=== PATIENT | female | born 1955 | race Caucasian/White ===

== ENCOUNTER → 2024-05-17 | Outpatient (CLI) | payer OTHER ==
[2024-05-17 13:50] LABS: Basophils # (auto) 0.1 10 ^3/uL (0-0.2); Basophils % (auto) 0.7 % (0.0-2.0); Eosinophils # (auto) 0.1 10 ^3/uL (0-0.8); Eosinophils % (auto) 1.1 % (0.0-7.0); Hematocrit 42.4 % (36.0-46.0); Hemoglobin 14.6 g/dL (12.2-16.2); Lymphocytes # (auto) 1.8 10 ^3/uL (0.4-5.4); Lymphocytes % (auto) 21.9 % (10.0-50.0); Mean Corpuscular Hgb Conc. 34.5 g/dL (32.0-36.0); Monocytes # (auto) 0.6 10 ^3/uL (0-1.3); Monocytes % (auto) 7.6 % (0.0-12.0); Neutrophils # (auto) 5.7 10 ^3/uL (1.6-8.6); Neutrophils % (auto) 68.7 % (37.0-80.0); Nucleated Red Blood Cells % 0.8 %; Red Blood Cells 4.88 10^6/uL (4.0-5.20); Red Cell Distribution Width 13.5 % (11.8-14.3); White Blood Cell 8.2 10^3/uL (4.4-10.8)
[2024-05-17 14:20] LABS: Alanine Aminotransferase 20 U/L (7-40); Albumin 5.1 g/dL (3.2-4.8); Alkaline Phosphatase 82 U/L (46-116); Anion Gap 8 (5-15); Aspartate Aminotransferase 17 U/L (13-40); Bilirubin, Total 0.9 mg/dL (0.2-1.0); Blood Urea Nitrogen 12 mg/dL (9-23); Calcium 10.6 mg/dL (8.7-10.4); Carbon Dioxide 26 mmol/L (20-30); Chloride 106 mmol/L (98-107); Cholesterol 209 mg/dL (< 200); Glucose 105 mg/dL (74-106); HDL Cholesterol 40 mg/dL (40-59); LDL Cholesterol 147 mg/dL (< 100); Potassium 4.4 mmol/L (3.5-5.1); Sodium 140 mmol/L (136-145); Triglycerides 196 mg/dL (< 150)
== END | disposition home or self-care (01) ==
LOC: LAB 13:35
PROVIDERS: ATTEND Specialist
DX: I12.9 Hypertensive chronic kidney disease with stage 1 through stage 4 chronic kidney disease, or unspecified chronic kidney disease (principal); N18.2 Chronic kidney disease, stage 2 (mild); M16.4 Bilateral post-traumatic osteoarthritis of hip
CPT/HCPCS: 36415; 80053; 80061; 85025

== ENCOUNTER → 2024-11-08 | Outpatient (CLI) | payer OTHER ==
[~2024-11-08] VITALS: Ht 162.6 cm; Wt 88.0 kg
[2024-11-08] MEDS: ADENOSINE 74 MG in GIVE UN-DILUTED 0 ML IV ONE (11:33)
--- NOTE | 2024-11-08 13:26 | DVHSR ---
APPROVED REPORT Exam: Nuclear Stress Test BMI: 0 Stress Test Details HR Max Heart Rate (APMHR): 150.318905 bpm Target HR (85% APMHR): 127.191972 bpm BP ECG Stress ECG Conclusion Review of the myocardial perfusion images during stress demonstrated homogeneous radiotracer uptake t hroughout the left ventricular myocardium. Left ventricular volumes are normal. Ejection fraction i s normal and is estimated at 63%. There is no significant transient ischemic dilatation. No gated i mages are available to assess for wall motion. Impressions: 1. Low risk myocardial perfusion scan with no evidence of ischemia or prior infarction. 2. Normal left ventricular systolic function. NM EXAM: Myocardial Perfusion REST/STRESS Imaging Protocol: Rest Tc-99m/Stress Tc-99m 1 day Resting Data Rest SPECT myocardial perfusion imaging was performed in supine position 60 minutes following the int ravenous injection of 11.4 mCi of Tc-99m Sestamibi. Time of rest injection: 1000 Date: 11/08/2024 Time of rest imagin Date: 11/08/2024 Administration Route: IV Administration Site: Right AC Pharmacologic Stress Pharmacologic stress test was performed by injecting Regadenoson 0.4 mg IV push followed by the intra venous injection of 31.1 mCi of Tc-99m Sestamibi. Time of stress injection: 1135 Date: 11/08/2024 Time of stress imagin Date: 11/08/2024 Administration Route: IV Administration Site: Right AC Gated Stress SPECT was performed 60 minutes after stress injection. The images were gated to evaluate regional wall motion and calculate left ventricular ejection fracti on. Stress only was performed in the Supine position. Nuclear Conclusion ECG Findings: negative for ischemia Clinical Findings: negative for ischemia Nuclear Findings: negative for ischemia Exercise Capacity: not assessed Left Ventricular Function: normal Risk Study: moderate Review of the myocardial perfusion images during stress demonstrated homogeneous radiotracer uptake t hroughout the left ventricular myocardium. Left ventricular volumes are normal. Ejection fraction i s normal and is estimated at 63%. There is no significant transient ischemic dilatation. No gated i mages are available to assess for wall motion. Impressions: 1. Low risk myocardial perfusion scan with no evidence of ischemia or prior infarction. 2. Normal left ventricular systolic function.
== END | disposition home or self-care (01) ==
LOC: XYW 09:57
PROVIDERS: ATTEND Internal Medicine
DX: Z01.810 Encounter for preprocedural cardiovascular examination (principal); M16.0 Bilateral primary osteoarthritis of hip
CPT/HCPCS: 78452; 93017; A9500; J0153

== ENCOUNTER 2024-12-27 06:00 | Inpatient (IN) | payer OTHER ==
[2024-12-23 15:31] LABS: Basophils # (auto) 0.1 10 ^3/uL (0-0.2); Basophils % (auto) 0.7 % (0.0-2.0); Eosinophils # (auto) 0.1 10 ^3/uL (0-0.8); Eosinophils % (auto) 1.2 % (0.0-7.0); Hematocrit 43.6 % (36.0-46.0); Hemoglobin 14.6 g/dL (12.2-16.2); Lymphocytes # (auto) 2.2 10 ^3/uL (0.4-5.4); Lymphocytes % (auto) 27.4 % (10.0-50.0); Mean Corpuscular Hemoglobin 29.2 pg (28.0-32.0); Mean Corpuscular Hgb Conc. 33.5 g/dL (32.0-36.0); Mean Corpuscular Volume 87.4 fL (80.0-100.0); Monocytes # (auto) 0.6 10 ^3/uL (0-1.3); Monocytes % (auto) 7.1 % (0.0-12.0); Neutrophils # (auto) 5.2 10 ^3/uL (1.6-8.6); Neutrophils % (auto) 63.6 % (37.0-80.0); Platelet Count (auto) 239 10^3/uL (140-450); Red Blood Cells 4.99 10^6/uL (4.0-5.20); Red Cell Distribution Width 13.4 % (11.8-14.3); White Blood Cell 8.2 10^3/uL (4.4-10.8)
[2024-12-23 15:48] LABS: INR 0.98 (0.9-1.15); Partial Thromboplastin Time 26.3 SEC (24.5-34.5); Prothrombin Time 10.4 sec (9.3-11.8)
[2024-12-23 16:05] LABS: Urine Bacteria FEW /hpf (None Seen); Urine Blood Negative /uL (Negative); Urine Clarity Clear (Clear); Urine Color Yellow (Yellow); Urine Protein, UAD Negative (Negative); Urine Specific Gravity 1.025 (1.001-1.035); Urine Squamous Epithelial Cell FEW /hpf (<5); Urine Urobilinogen 4 mg/dL (Negative); Urine WBC 17 /HPF (0-5)
[2024-12-23 16:28] LABS: Alanine Aminotransferase 26 U/L (7-40); Alkaline Phosphatase 102 U/L (46-116); Anion Gap 8 (5-15); Aspartate Aminotransferase 19 U/L (13-40); BUN/Creatinine Ratio 15.7 (10.0-20.0); Bilirubin, Total 0.7 mg/dL (0.2-1.0); Blood Urea Nitrogen 14 mg/dL (9-23); Carbon Dioxide 30 mmol/L (20-31); Chloride 104 mmol/L (98-107); Glucose 94 mg/dL (74-106); Potassium 4.1 mmol/L (3.5-5.1); Sodium 142 mmol/L (136-145)
[2024-12-23 16:29] LABS: Albumin 5.3 g/dL (3.2-4.8); Calcium 10.8 mg/dL (8.7-10.4)
[~2024-12-27] VITALS: Ht 162.6 cm; Wt 93.7 kg
[2024-12-27] VITALS (16 sets, daily range): BP systolic 94–120; BP diastolic 49–80; PULSE 47–66; RESP 11–17; TEMP 97.8–98.4; O2SAT 93–100
[~2024-12-27 06:00] MED LIST: ATOR10TA52 PO; METO25TA93 PO
[2024-12-27] MEDS: PREGABALIN CAPSULE 75 MG CAP PO ONE (06:45)
[2024-12-27] MEDS: ACETAMINOPHEN IV 1000 MG/100ML (10MG/ML) IV ONE (06:45)
[2024-12-27] MEDS: CELECOXIB 100 MG CAP PO ONE (06:45)
[2024-12-27] MEDS ORDERED: KETAMINE 50mg/ML 1ml syringe ONE (06:46)
[2024-12-27] MEDS ORDERED: PROPOFOL 10 MG/ML 20 ML IV ONE (06:46)
[2024-12-27] MEDS ORDERED: MIDAZOLAM HCL 2MG/2ML 2ml VIAL (1mg/ml) ONE ×2 (06:46→07:43)
[2024-12-27] MEDS ORDERED: MORPHINE SULF PF 5 MG/10 ML VIAL ONE ×2 (06:46→07:05)
[2024-12-27] MEDS ORDERED: fentaNYL CITRATE 100 MCG/2 ML VL ONE (06:46)
[2024-12-27] MEDS ORDERED: LIDOCAINE 1% INJ PF 5ML AMP ONE (06:46)
[2024-12-27] MEDS ORDERED: SODIUM CHLORIDE LOCK 10 ML ONE (06:46)
[2024-12-27] MEDS ORDERED: MORPHINE SULFATE INJ 2 MG/ml SYRG IV PRN ×2 (07:15→10:00)
[2024-12-27] MEDS ORDERED: KETOROLAC TROMETH 30 MG/ML 1ML VIAL IV PRN (07:15)
[2024-12-27] MEDS ORDERED: HYDROmorphone HCL 2 MG/ML VL/or syr IV PRN ×3 (07:15→10:00)
[2024-12-27] MEDS ORDERED: NITROGLYCERIN 0.4 MG SL TAB SL PRN (07:15)
[2024-12-27] MEDS ORDERED: ceFAZolin 1GM/50ML 50 ML IV SCH (07:15)
[2024-12-27] MEDS: ceFAZolin 2 GM/D5W100ml 100 ML IV ONE (07:21)
[2024-12-27] MEDS: CEFEPIME 1GM/ 50ML 50 ML IV ONE (07:28)
[2024-12-27] MEDS: TRANEXAMIC ACID 20 ML ONE (07:53)
[2024-12-27] MEDS: MORPHINE SULF PF 5 MG/10 ML VIAL ONE (09:00)
[2024-12-27] MEDS: BUPIVACAINE 0.25% INJ 50ML VIAL ONE (09:00)
[2024-12-27] MEDS: KETOROLAC TROMETH 30 MG/ML 1ML VIAL ONE (09:00)
[2024-12-27] MEDS: VANCOMYCIN HCL 1000 MG VL ONE (09:00)
[2024-12-27] MEDS ORDERED: METO-289 PO (09:45)
[2024-12-27] MEDS ORDERED: ATOR40TA52 PO (09:45)
[2024-12-27] MEDS ORDERED: MORPHINE SULFATE 4 MG/ML SYR/VIAL IV PRN (10:00)
[2024-12-27] MEDS: METOPROLOL SUCCINATE XL 50 MG TAB PO SCH (10:00)
[2024-12-27] MEDS ORDERED: diphenhdrAMINE HCL 50 MG/1 ML VL IV PRN (10:00)
[2024-12-27] MEDS ORDERED: NALOXONE HCL 0.4 MG/ML VIAL IV PRN (10:00)
[2024-12-27] MEDS: ACETAMINOPHEN IV 100 ML IV ONE (10:09)
[2024-12-27] MEDS: SUCCINYLCHOLINE CHLORIDE 20 MG/ML 10ML VIAL IV ONE (10:10)
[2024-12-27] MEDS: TETRACAINE 1% INJ 2 ML VIAL IJ ONE (10:10)
[2024-12-27] MEDS: ceFAZolin 1GM VL ONE (10:11)
[2024-12-27] MEDS: LACTATED RINGER'S 1,000 ML IV SCH (10:20)
--- NOTE | 2024-12-27 11:23 | DVH ---
EXAM: XY PELVIS AP CLINICAL INDICATION: sp Left COLEMAN TECHNIQUE: XY PELVIS AP Comparison: None FINDINGS/IMPRESSION: There is no evidence of acute fracture or dislocation. Left hip arthroplasty. Advanced right hip osteoarthritis. The alignment is anatomical. There is no radiopaque foreign body.
[2024-12-27] MEDS: METOCLOPRAMIDE HCL 5MG/ml INJ 2ml VIAL IV ONE (11:34)
[2024-12-27] MEDS: DOCUSATE SOD 100 MG CAP PO SCH (12:04)
[2024-12-27] MEDS: SODIUM CHLOR 0.9% PF (SALINE LOCK) 10ML VIAL/SYR IV SCH (14:06)
[2024-12-27] MEDS: ceFAZolin 1GM/50ML 50 ML IV SCH (14:11)
--- NOTE | 2024-12-27 14:18 | DVHHP2 ---
Review of Systems Allergies: Coded Allergies: Propoxyphene (Verified Adverse Reaction, Unknown, LIGHTHEADED AND TEETH CHATTERING PER PATIENT, 12/27/24) DARVOCET Medications Current Medications Medications Dose Ordered Sig/Pardeep Route Start Time Stop Time Status Last Admin Dose Admin Atorvastatin Calcium 10 mg HS PO 12/27/24 22:00 Metoprolol Succinate 25 mg DAILY PO 12/27/24 10:00 Lactated Ringer's 1,000 ml @ 100 mls/hr Q10H IV 12/27/24 07:15 12/27/24 10:20 100 MLS/HR Sodium Chloride 10 ml Q8HR IV 12/27/24 14:00 12/27/24 14:06 10 ML Oxycodone/ Acetaminophen 1 tab Q4HP PRN PO 12/27/24 07:15 Hydromorphone HCl 1 mg Q2HP PRN IV 12/27/24 07:15 Ondansetron HCl 4 mg Q6HP PRN IV 12/27/24 07:15 Docusate Sodium 100 mg Q12HR PO 12/27/24 10:00 12/27/24 12:04 100 MG Enoxaparin Sodium 40 mg DAILY SC 12/28/24 10:00 Nitroglycerin 0.4 mg Q5MINP PRN SL 12/27/24 07:15 Morphine Sulfate 2 mg Q30M PRN IV 12/27/24 07:15 Pantoprazole Sodium 40 mg BID@0600,1700 PO 12/27/24 17:00 Ketorolac Tromethamine 15 mg Q6HPRN PRN IV 12/27/24 07:15 01/01/25 07:14 Diphenhydramine HCl 25 mg Q4HP PRN IV 12/27/24 10:00 Cefazolin Sodium 50 ml @ 50 mls/hr Q6H IV 12/27/24 13:00 12/28/24 01:59 12/27/24 14:11 50 MLS/HR Cefepime HCl 50 ml @ 12.5 mls/hr DAILY IV 12/28/24 10:00 Exam Vital Signs Vital Signs Date Time Temp Pulse Resp B/P (MAP) Pulse Ox O2 Delivery O2 Flow Rate FiO2 12/27/24 11:53 40 12 109/49 (69) 100 12/27/24 09:38 Room Air 0 93 12/27/24 09:38 97.7 97.7 Labs/Xrays Labs Test 12/23/24 15:23 Range/Units White Blood Count 8.2 4.4-10.8 10^3/uL Red Blood Count 4.99 4.0-5.20 10^6/uL Hemoglobin 14.6 12.2-16.2 g/dL Hematocrit 43.6 36.0-46.0 % Mean Corpuscular Volume 87.4 80.0-100.0 fL Mean Corpuscular Hemoglobin 29.2 28.0-32.0 pg Mean Corpuscular Hemoglobin Concent 33.5 32.0-36.0 g/dL Red Cell Distribution Width 13.4 11.8-14.3 % Platelet Count 239 140-450 10^3/uL Mean Platelet Volume 7.2 6.9-10.8 fL Neutrophils (%) (Auto) 63.6 37.0-80.0 % Lymphocytes (%) (Auto) 27.4 10.0-50.0 % Monocytes (%) (Auto) 7.1 0.0-12.0 % Eosinophils (%) (Auto) 1.2 0.0-7.0 % Basophils (%) (Auto) 0.7 0.0-2.0 % Neutrophils # (Auto) 5.2 1.6-8.6 10 ^3/uL Lymphocytes # (Auto) 2.2 0.4-5.4 10 ^3/uL Monocytes # (Auto) 0.6 0-1.3 10 ^3/uL Eosinophils # (Auto) 0.1 0-0.8 10 ^3/uL Basophils # (Auto) 0.1 0-0.2 10 ^3/uL Nucleated Red Blood Cells 0.0 % Prothrombin Time 10.4 9.3-11.8 sec Prothrombin Time INR 0.98 0.9-1.15 Activated Partial Thromboplast Time 26.3 24.5-34.5 SEC Urine Color Yellow Yellow Urine Clarity Clear Clear Urine pH 7.0 5.0-9.0 Urine Specific [place] 1.025 1.001-1.035 Urine Protein Negative Negative Urine Ketones Negative Negative Urine Blood Negative Negative /uL Urine Nitrite Negative Negative Urine Bilirubin Negative Negative Urine Urobilinogen 4 H Negative mg/dL Urine Leukocyte Esterase 1+ Negative /uL Urine RBC 3 0 - 4 /hpf Urine Microscopic WBC 17 H 0-5 /HPF Urine Squamous Epithelial Cells Few <5 /hpf Urine Bacteria Few H None Seen /hpf Urine Glucose Normal Normal mg/dL Sodium Level 142 136-145 mmol/L Potassium Level 4.1 3.5-5.1 mmol/L Chloride Level 104 98-107 mmol/L Carbon Dioxide Level 30 20-31 mmol/L Anion Gap 8 5-15 Blood Urea Nitrogen 14 9-23 mg/dL Creatinine 0.89 0.550-1.02 mg/dL Glomerular Filtration Rate Calc 69 >90 mL/min BUN/Creatinine Ratio 15.7 10.0-20.0 Serum Glucose 94 74-106 mg/dL Calcium Level 10.8 H 8.7-10.4 mg/dL Total Bilirubin 0.7 0.2-1.0 mg/dL Aspartate Amino Transferase (AST) 19 13-40 U/L Alanine Aminotransferase (ALT) 26 7-40 U/L Alkaline Phosphatase 102 46-116 U/L Total Protein 8.0 5.7-8.2 g/dL Albumin 5.3 H 3.2-4.8 g/dL Assessment/Plan Assessment/Plan see dictated note Plan discussed with: Patient Date of Service: Dec 27, 2024 Billing Provider: ADAM EISENBERG MD Common Visit Codes: [id number] INP/OBS CARE (HIGH) Secondary Visit Codes: 62154-[id number] CARE PLAN 30 MINUTES ADAM EISENBERG MD Dec 27, 2024 14:18
[2024-12-27] MEDS: ONDANSETRON HCL 4 MG/2 ML VIAL IV PRN (15:40)
--- NOTE | 2024-12-27 15:43 | DVHHP ---
ADMIT DATE: 12/27/2024 HISTORY OF PRESENT ILLNESS: The patient is a 69-year-old lady who was admitted after she underwent surgery on the left hip for DJD of the hip. The patient at this time denies any significant pain. No chest pain or shortness of breath. No nausea or vomiting. REVIEW OF SYSTEMS: Review of rest of systems are otherwise currently negative. PAST MEDICAL HISTORY: Significant for hypertension, hyperlipidemia. MEDICATIONS: She takes Lipitor and metoprolol. ALLERGIES: TO PROPOXYPHENE. SOCIAL HISTORY: Denies smoking or alcohol. Lives at home with family. FAMILY HISTORY: Negative. PHYSICAL EXAMINATION: GENERAL: The patient is awake, alert. VITAL SIGNS: Temperature of 97.6, pulse of 45 per minute, blood pressure 109/49. SHEENT: Unremarkable. NECK: There is no JVD, no pedal edema. LUNGS: Equal bilaterally, no added sounds. CARDIOVASCULAR: S1, S2 is regular. The patient is bradycardic. ABDOMEN: Soft. There is no organomegaly. NEUROLOGIC: Nonfocal. MUSCULOSKELETAL: There is a dressing at the site of the left hip surgery. ASSESSMENT AND PLAN: * Bradycardia. The patient's metoprolol will be held. * Hypertension. * Hyperlipidemia. * Obesity. * Status post left hip surgery for DJD of the hip. The patient will receive physical therapy and be placed on pain medications. * Advance care planning, the patient is a FULL CODE. Time spent was 19 minutes. MD GENEVA Cunningham/MORENO/EDER TID: [id number] RECEIPT: [id number]
[2024-12-27] MEDS: KETOROLAC TROMETH 30 MG/ML 1ML VIAL IV ONE (15:50)
[2024-12-27] MEDS: PANTOPRAZOLE 40 MG TAB PO SCH (19:06)
[2024-12-27] MEDS: ATORVASTATIN 20 MG TAB PO SCH (21:22)
[2024-12-28] VITALS (24 sets, daily range): BP systolic 92–128; BP diastolic 42–64; PULSE 53–88; RESP 14–18; TEMP 98–99.5; O2SAT 86–100
[2024-12-28 07:07] LABS: Basophils # (auto) 0 10 ^3/uL (0-0.2); Basophils % (auto) 0.1 % (0.0-2.0); Eosinophils # (auto) 0.1 10 ^3/uL (0-0.8); Hematocrit 31.6 % (36.0-46.0); Hemoglobin 10.7 g/dL (12.2-16.2); Lymphocytes # (auto) 1.3 10 ^3/uL (0.4-5.4); Lymphocytes % (auto) 21.7 % (10.0-50.0); Mean Corpuscular Hemoglobin 29.9 pg (28.0-32.0); Mean Corpuscular Hgb Conc. 33.8 g/dL (32.0-36.0); Mean Corpuscular Volume 88.3 fL (80.0-100.0); Monocytes # (auto) 0.7 10 ^3/uL (0-1.3); Monocytes % (auto) 11.1 % (0.0-12.0); Neutrophils # (auto) 4.1 10 ^3/uL (1.6-8.6); Neutrophils % (auto) 66.1 % (37.0-80.0); Platelet Count (auto) 153 10^3/uL (140-450); Red Blood Cells 3.58 10^6/uL (4.0-5.20); Red Cell Distribution Width 13.1 % (11.8-14.3); White Blood Cell 6.2 10^3/uL (4.4-10.8)
[2024-12-28 07:12] LABS: Alanine Aminotransferase 17 U/L (7-40); Albumin 3.8 g/dL (3.2-4.8); Alkaline Phosphatase 69 U/L (46-116); Anion Gap 7 (5-15); Aspartate Aminotransferase 32 U/L (13-40); BUN/Creatinine Ratio 13.3 (10.0-20.0); Bilirubin, Total 0.7 mg/dL (0.2-1.0); Blood Urea Nitrogen 10 mg/dL (9-23); Calcium 9.4 mg/dL (8.7-10.4); Carbon Dioxide 27 mmol/L (20-31); Chloride 106 mmol/L (98-107); Glucose 99 mg/dL (74-106); Sodium 140 mmol/L (136-145); Total Protein 5.9 g/dL (5.7-8.2)
--- NOTE | 2024-12-28 07:51 | DVHPN2 ---
Progress Note Date Seen: Dec 28, 2024 Medical Necessity Reason Pt with a Central, PICC or Fol: No The following are medically ne: Benjamin Catheter Subjective Patient reports: No new complaints Objective vital signs Vital Sign Date Time Temp Pulse Resp B/P (MAP) Pulse Ox O2 Delivery O2 Flow Rate FiO2 12/28/24 06:00 62 18 100 12/28/24 05:00 98.0 100/49 (66) 98.0 12/27/24 20:00 Nasal Cannula* 2 28 Total Intake and Output 12/27/24 12/27/24 12/28/24 15:00 23:00 07:00 Intake Total 170 ml 300 ml 300 ml Balance 170 ml 300 ml 300 ml medications Current Medications Medications Dose Ordered Sig/Pardeep Route Start Time Stop Time Status Last Admin Dose Admin Atorvastatin Calcium 10 mg HS PO 12/27/24 22:00 12/27/24 21:22 10 MG Lactated Ringer's 1,000 ml @ 100 mls/hr Q10H IV 12/27/24 07:15 12/28/24 03:15 100 MLS/HR Sodium Chloride 10 ml Q8HR IV 12/27/24 14:00 12/28/24 06:24 10 ML Oxycodone/ Acetaminophen 1 tab Q4HP PRN PO 12/27/24 07:15 Hydromorphone HCl 1 mg Q2HP PRN IV 12/27/24 07:15 Ondansetron HCl 4 mg Q6HP PRN IV 12/27/24 07:15 12/27/24 15:40 4 MG Docusate Sodium 100 mg Q12HR PO 12/27/24 10:00 12/27/24 21:22 100 MG Enoxaparin Sodium 40 mg DAILY SC 12/28/24 10:00 Nitroglycerin 0.4 mg Q5MINP PRN SL 12/27/24 07:15 Morphine Sulfate 2 mg Q30M PRN IV 12/27/24 07:15 Pantoprazole Sodium 40 mg BID@0600,1700 PO 12/27/24 17:00 12/28/24 06:25 40 MG Ketorolac Tromethamine 15 mg Q6HPRN PRN IV 12/27/24 07:15 01/01/25 07:14 Diphenhydramine HCl 25 mg Q4HP PRN IV 12/27/24 10:00 Cefepime HCl 50 ml @ 12.5 mls/hr DAILY IV 12/28/24 10:00 Examination: GENERAL:Normal, MSK:Abnormal laboratory and microbiology Laboratory Tests 12/28/24 06:24 Test 12/28/24 06:24 Range/Units Serum Glucose 99 74-106 mg/dL Problem List/Assessment/Plan Problem List/Assessment/Plan Patient is a 69 year old female who is s/p COLEMAN POD 1 1. Discussed posterior hip precautions 2. WBAT 3. Physical therapy 4. DVT ppx 5. rec abduction pillow when sleeping 6. d/c planning for possible home tomorrow Plan discussed with: Patient Date of Service: Dec 28, 2024 Billing Provider: NICANOR WALTERS MD Common Visit Codes: NOT BILLABLE TORO KUNZ NP Dec 28, 2024 07:51
[2024-12-28] MEDS: CEFEPIME 1GM/ 50ML 50 ML IV SCH (09:11)
[2024-12-28] MEDS: ENOXAPARIN SOD 40 MG/0.4 ML SYRINGE SC SCH (09:12)
--- NOTE | 2024-12-28 11:59 | DVHPN2 ---
Progress Note Date Seen: Dec 28, 2024 Medical Necessity Reason Pt with a Central, PICC or Fol: No The following are medically ne: Benjamin Catheter Subjective Patient reports: No new complaints Review of Systems: HEENT:Normal, CVS:Normal, RESPIRATORY:Normal, GI:Normal, :Normal, MSK:Normal, NEURO:Normal Objective vital signs Vital Sign Date Time Temp Pulse Resp B/P (MAP) Pulse Ox O2 Delivery O2 Flow Rate FiO2 12/28/24 09:28 98.0 71 18 112/45 (67) 100 98.0 12/27/24 20:00 Nasal Cannula* 2 28 Total Intake and Output 12/27/24 12/27/24 12/28/24 15:00 23:00 07:00 Intake Total 170 ml 300 ml 300 ml Balance 170 ml 300 ml 300 ml medications Current Medications Medications Dose Ordered Sig/Pardeep Route Start Time Stop Time Status Last Admin Dose Admin Atorvastatin Calcium 10 mg HS PO 12/27/24 22:00 12/27/24 21:22 10 MG Lactated Ringer's 1,000 ml @ 100 mls/hr Q10H IV 12/27/24 07:15 12/28/24 03:15 100 MLS/HR Sodium Chloride 10 ml Q8HR IV 12/27/24 14:00 12/28/24 06:24 10 ML Oxycodone/ Acetaminophen 1 tab Q4HP PRN PO 12/27/24 07:15 Hydromorphone HCl 1 mg Q2HP PRN IV 12/27/24 07:15 Ondansetron HCl 4 mg Q6HP PRN IV 12/27/24 07:15 12/27/24 15:40 4 MG Docusate Sodium 100 mg Q12HR PO 12/27/24 10:00 12/28/24 09:11 100 MG Enoxaparin Sodium 40 mg DAILY SC 12/28/24 10:00 12/28/24 09:12 40 MG Nitroglycerin 0.4 mg Q5MINP PRN SL 12/27/24 07:15 Morphine Sulfate 2 mg Q30M PRN IV 12/27/24 07:15 Pantoprazole Sodium 40 mg BID@0600,1700 PO 12/27/24 17:00 12/28/24 06:25 40 MG Ketorolac Tromethamine 15 mg Q6HPRN PRN IV 12/27/24 07:15 01/01/25 07:14 Diphenhydramine HCl 25 mg Q4HP PRN IV 12/27/24 10:00 Cefepime HCl 50 ml @ 12.5 mls/hr DAILY IV 12/28/24 10:00 12/28/24 09:11 12.5 MLS/HR Examination: GENERAL:Normal, HEENT:Normal, NECK:Normal, LUNGS:Normal, CVS:Normal, ABDOMEN:Normal, MSK:Normal, MSK:Abnormal (left hip dressing), SKIN:Normal, NEURO:Normal, :Normal laboratory and microbiology Laboratory Tests 12/28/24 06:24 Test 12/28/24 06:24 Range/Units Serum Glucose 99 74-106 mg/dL Problem List/Assessment/Plan Problem List/Assessment/Plan * Bradycardia. The patient's metoprolol will be held. * Hypertension. * Hyperlipidemia. * Obesity. * Status post left hip surgery for DJD of the hip. The patient will receive physical therapy and be placed on pain medications. * Advance care planning, the patient is a FULL CODE- time spent 19 mins Plan discussed with: Patient Date of Service: Dec 28, 2024 Billing Provider: ADAM EISENBERG MD Common Visit Codes: [id number] INP/OBS CARE(HIGH) Secondary Visit Codes: [id number] CARE PLAN 30 MINUTES ADAM EISENBERG MD Dec 28, 2024 11:59
[2024-12-28] MEDS ORDERED: HYDROmorphone HCL 2 MG/ML VL/or syr IV PRN (12:00)
[2024-12-28] MEDS: OXYCODONE W/ ACETAMINOPHEN 5/325MG TABLET PO PRN (14:51)
--- NOTE | 2024-12-28 15:41 | DVHOP2 ---
Operative Report - 2 Report Details Date: 12/27/24 Preop Diagnosis: Left hip osteoarthritis Postop Diagnosis: as above Surgeon: Anders Walters MD Yard Brakeman: Shemar CRUZ Anesthesiologist: Alejandro SOARES Anesthesia: Regional Implant: Sr and Nephew size 50 mm R3 cup Dual mobility 38/28+0 size 1 lateral polaris stem screw x 2 Consent: The patient was informed of the risks and benefits of the procedure. These include but are not limited to complications of anesthesia, postoperative infection, incomplete relief of symptoms, recurrence of symptoms, damage to blood vessels, nerves and tendons, deep venous thrombosis, pulmonary embolism and possible need for repeat surgery in the future. Estimated Blood Loss: 300 cc Name of Procedure Performed Left total hip arthroplasty using computer navigation Procedure Details Procedure Details: FINDINGS: Extensive degenerative disease with grade IV changes INDICATION: This patient has failed non-operative treatments for hip arthritis and is now indicated for a total hip replacement. Preoperatively in the waiting area as well as in the office, I had a long discussion with the patient regarding the plan, the expected outcome, the risks, benefits, and alternatives of surgery. The risks include, but are not limited to, infection (which may require future surgery and removal of implants) , bleeding (which may require a transfusion), damage to nerves, arteries, veins, tendons, muscles and other adjacent structures. Also discussed the possibilities of dislocation, leg-length discrepancy, intraoperative fractures, implant loosening, heterotopic bone formation, and revision for variety of reasons, and medical complications etc. This was discussed at length and consent has been obtained. DESCRIPTION OF PROCEDURE: In the preoperative holding area, the consent was reviewed and the appropriate extremity was verified by the patient and marked with my initials. The patient was then transferred to the operating theatre. Appropriate anesthe tia was induced. All bony prominences were well padded. A time out was performed verifying the side and site of surgery according to standard protocol. Preoperative antibiotics were given. Tranexamic acid was given. The patient was then placed in the lateral decubitus position and fixed with rigid pelvic fixation. All bony prominences were well padded and an axillary roll was placed. The affected hip area was then prepped and draped in the usual sterile fashion. Using an 11-blade, three stab incisions were made over the iliac crest. Two threaded guide pins were inserted into the crest confirming to be in bone. The pelvic array was attached to the pins and tightened. We made a standard posterolateral incision sharply through the skin and carried our dissection down through subcutaneous tissue to the underlying fascia achieving hemostasis where necessary. We incised the fascia in line with our incision. We identified and protected the sciatic nerve. We took down the external rotators and hip capsule from their insertion into the greater trochanter, tagged them and retracted them posteriorly for further protection of the sciatic nerve. A check point was placed into the greater trochanter and the hip center and leg length length were registered. We then dislocated the femoral head and performed an osteotomy of the femoral neck in accordance with our pre-operative plan. The labrum was excised with a long-handle knife, and we exposed the acetabular rim and cotyloid fossa. We then reamed up to our final size in accordance with the preoperative plan. We copiously irrigated and then impacted the final cup into position. We c onfirmed the position with the robotic navigation guidance. Attention was then turned to the femur. We used a box osteotome followed by a canal finder to gain entry to the canal. Intramedullary contents were suctioned and care was taken to ensure they did not touch the tissues. We sequentially reamed until good cortical contact, then broached up to out final size. We trialed with the appropriate femoral neck and head and reduced the hip. The hip was taken through a full range of motion. The hip soft tissues were examined in extension and external rotation, the anterior capsule and IT band were palpated, and combined anteversion was determined to be 40 degrees. The hip was stable at maximum flexion, at 90 degrees of flexion and 45 degrees of internal rotation and the position of sleep. Leg lengths were restored as shown using the computer navigation, and the trial LTC matched preoperative and intraoperative templating. The hip was then dislocated and trial components removed. We copiously irrigated the wound and impacted the final femoral stem into position. The femoral head was impacted onto a clean and dry trunion and confirmed to be seated. The hip was reduced ensuring to tissues in the acetabular cup. We again brought it through a full functional range of motion and there was no evidence for dislocation, instability, or impingement. The checkpoint was removed. A dilute betadine solution (17.5mL in 500mL saline) was used to wash the joint and left to sit for 3 minutes. This was then irrigated out with copious amounts of pulse lavage. We sprinkled 1g vancomycin powder below the fascia and 1g above the fascia. We copiously irrigated the wound and soft tissues. The short external rotators and capsule were repaired to the greater trochanter through drill holes, and the quadratus was repaired. We palpated the sciatic nerve in continuity without tension. The fascia was closed with vicryl and a barbed suture. We closed over the fascia with vicryl suture and re-approximated the skin with narendra. A sterile dressing was placed. We returned the patient to the supine position. We verified all lower extremity compartments were soft and compressible and that we had intact distal pulses and checked our leg length mandaeism. We took an AP Pelvis in the op erating room, which we reviewed prior to transfer. The patient was then transferred to the recovery room in stable condition. Condition Good Disposition Still a Patient ANDERS WALTERS MD Dec 28, 2024 15:41
[2024-12-29 01:00] VITALS: BP 106/51; PULSE 90; RESP 18; TEMP 99.1; O2SAT 94
[2024-12-29 05:00] VITALS: BP 103/41; PULSE 74; RESP 18; TEMP 98.8; O2SAT 98
[2024-12-29 07:38] LABS: Hemoglobin 9.7 g/dL (12.2-16.2)
--- NOTE | 2024-12-29 07:47 | DVHPN2 ---
Progress Note Date Seen: Dec 29, 2024 Medical Necessity Reason Pt with a Central, PICC or Fol: No Subjective Patient reports: No new complaints Objective vital signs Vital Sign Date Time Temp Pulse Resp B/P (MAP) Pulse Ox O2 Delivery O2 Flow Rate FiO2 12/29/24 05:00 98.8 74 18 103/41 (61) 98 98.8 12/28/24 20:00 Nasal Cannula* 2 28 Total Intake and Output 12/28/24 12/28/24 12/29/24 15:00 23:00 07:00 Intake Total 50 ml 300 ml Balance 50 ml 300 ml medications Current Medications Medications Dose Ordered Sig/Pardeep Route Start Time Stop Time Status Last Admin Dose Admin Atorvastatin Calcium 10 mg HS PO 12/27/24 22:00 12/28/24 21:16 10 MG Lactated Ringer's 1,000 ml @ 100 mls/hr Q10H IV 12/27/24 07:15 12/28/24 22:24 100 MLS/HR Sodium Chloride 10 ml Q8HR IV 12/27/24 14:00 12/29/24 05:15 10 ML Oxycodone/ Acetaminophen 1 tab Q4HP PRN PO 12/27/24 07:15 12/28/24 19:51 1 TAB Ondansetron HCl 4 mg Q6HP PRN IV 12/27/24 07:15 12/27/24 15:40 4 MG Docusate Sodium 100 mg Q12HR PO 12/27/24 10:00 12/28/24 21:16 100 MG Enoxaparin Sodium 40 mg DAILY SC 12/28/24 10:00 12/28/24 09:12 40 MG Nitroglycerin 0.4 mg Q5MINP PRN SL 12/27/24 07:15 Morphine Sulfate 2 mg Q30M PRN IV 12/27/24 07:15 Pantoprazole Sodium 40 mg BID@0600,1700 PO 12/27/24 17:00 12/29/24 05:14 40 MG Ketorolac Tromethamine 15 mg Q6HPRN PRN IV 12/27/24 07:15 01/01/25 07:14 Diphenhydramine HCl 25 mg Q4HP PRN IV 12/27/24 10:00 Cefepime HCl 50 ml @ 12.5 mls/hr DAILY IV 12/28/24 10:00 12/28/24 09:11 12.5 MLS/HR Hydromorphone HCl 1 mg Q3HP PRN IV 12/28/24 12:00 Examination: GENERAL:Normal, MSK:Abnormal laboratory and microbiology Laboratory Tests 12/29/24 06:06 12/28/24 06:24 Test 12/28/24 06:24 Range/Units Serum Glucose 99 74-106 mg/dL Problem List/Assessment/Plan Problem List/Assessment/Plan Patient is a 69 year old female who is s/p [employer] POD 2 1. Discussed posterior hip precautions 2. WBAT 3. Physical therapy 4. DVT ppx 5. rec abduction pillow when sleeping 6. prescriptions for percocet, colace and aspirin sent electronically via [facility] to [facility] pharmacy on in [place] 7. follow up in 2 weeks at [facility] ortho clinic 8. dressings can remain clean, dry and intact for 2 weeks, no dressing change needed 9. clear for discharge home from orthopedic standpoint with home health and in home physical therapy with the following discharge recommendations: POSTOPERATIVE Posterior Total Hip INSTRUCTIONS Activity: 1. You can bear as much weight as you tolerate on your hip unless specifically instructed otherwise. You may use the walking aid which you were discharged with and switch to a cane whenever you feel comfortable doing so. You should use an assistive device until you can walk comfortably without it. Keep in mind that every patient moves at their own speed of recovery so take your time. 2. A physical therapist will visit you at home. 3. Although guarantees against a dislocation do not exist, the hip was noted to be sufficiently stable in surgery. Below are motions that you should dischargenot do for 4-6 weeks, depending on the surgical approach used. If there are questions, please call the office. a. Bend forward past 90 degrees b. Sit on a regular low chair, couch, car seat etc... c. Cross your legs d. Use a regular low toilet seat. e. Sleep on your stomach or on either side. 3. High impact activity such as jumping, aerobics, tennis, and skiing are not permitted during the first 3 months after surgery. These activities can contribute to accelerated wear and should be done with caution after this time. Discuss this with your surgeon if you have questions. 4. Although a bath or whirlpool is NOT permitted during the first 2-3 weeks, you may shower as soon as you get home from the hospital provided you are able to keep your bandage clean and dry and there is no wound drainage. If you are unable to place a secured covering over your bandage bed bath/sponge bath may likely be the more appropriate option. 5. Swimming is not permitted until the wound is healed, which typically occurs approximately 3-4 weeks after surgery. Wound Management: If the wound is draining please change the gauze pad on the wound until it stops. If drainage persists past 10 days please notify our office. If there is a sticky gel dressing over your wound, you may leave this in place for as long as it is clean and dry. If it becomes loose or causes skin irritation, it is OK to remove it and place clean gauze over your wound. 1. You might notice some bruising around the surgical site, this is normal. 2. Check your temperature on a daily basis. Please note that a low-grade temp below 101 is not uncommon after surgery especially during the first 3 days. Notify the office if your temperature spikes above 101.5 after the 3rd post- operative date. 3. Many patients experience significant swelling in the thigh, this may extend below the knee and sometimes to the ankle. Swelling increases during the first week and subsides during the following week. 4. Provided you have been on a blood thinner since surgery and have been up and about at least three times per day, the risk of a blood clot is low and this swelling is an expected part of recovery. It will largely or completely resolve by your first post-operative visit. 5. [place], if present, will be removed at 2 weeks during initial post-op visit. Medications: 1. You will be discharged with pain medication, Aspirin as a blood thinner and sometimes an anti-inflammatory medication such as Celebrex or Mobic might be prescribed. Please follow the instructions regarding these medicines as provided by your nurse at the hospital. 2. Narcotic pain medication has side effects, including constipation. Please ensure you continue to take stool softeners (Colace, Senna) while taking your pain medication to help protect against constipation. Getting up and moving around at least a few times per day helps with this also. 3. Lovenox 40 Sq x 12 days followed by one regular strength 325 mg coated aspirin daily for 4 weeks after surgery. Then, take one baby aspirin, 81 mg daily for 6 weeks more. A major, yet preventable, complication of Orthopaedic Surgery is a blood clot (DVT). It is important not to miss any doses of this important medication. 4. You should restart all of your prescription medications once discharged unless specifically instructed otherwise. 5. Herbal supplements may be restarted 2 weeks after surgery. Miscellaneous issues: 1. Driving is not permitted within the first 2 weeks. 2. Your first postoperative visit will take place 2weeks after discharge. Please call the office to arrange this appointment. 3. Antibiotic preventative treatment is required before dental or other invasive procedures. Please ask your surgeon about this at your first postoperative visit. Your hip replacement contains metal which may activate metal detectors. You may wish to carry a letter from your surgeon to communicate this to security personnel. If you experience chest pain, shortness of breath or severe painful calf swelling, go to the nearest emergency room to be evaluated. Please call our office once your situation is stabilized. Plan discussed with: Patient Date of Service: Dec 29, 2024 Billing Provider: NICANOR WALTERS MD Common Visit Codes: NOT BILLABLE TORO KUNZ NP Dec 29, 2024 07:47
[2024-12-29 08:00] VITALS: PULSE 84; PULSE 92; RESP 14; O2SAT 94
[2024-12-29 09:00] VITALS: BP 114/51; PULSE 84; RESP 18; TEMP 98; O2SAT 94
--- NOTE | 2024-12-29 11:52 | DVHDS2 ---
Discharge Summary Date of Admission Dec 27, 2024 at 10:03 Date of Discharge: Dec 29, 2024 Labs/Diagnostic Data: Laboratory Results Test 12/29/24 06:06 12/28/24 06:24 12/23/24 15:23 Hemoglobin 9.7 g/dL (12.2-16.2) Hematocrit 27.0 % (36.0-46.0) White Blood Count 6.2 10^3/uL (4.4-10.8) Red Blood Count 3.58 10^6/uL (4.0-5.20) Mean Corpuscular Volume 88.3 fL (80.0-100.0) Mean Corpuscular Hemoglobin 29.9 pg (28.0-32.0) Mean Corpuscular Hemoglobin Concent 33.8 g/dL (32.0-36.0) Red Cell Distribution Width 13.1 % (11.8-14.3) Platelet Count 153 10^3/uL (140-450) Mean Platelet Volume 7.7 fL (6.9-10.8) Neutrophils (%) (Auto) 66.1 % (37.0-80.0) Lymphocytes (%) (Auto) 21.7 % (10.0-50.0) Monocytes (%) (Auto) 11.1 % (0.0-12.0) Eosinophils (%) (Auto) 1.0 % (0.0-7.0) Basophils (%) (Auto) 0.1 % (0.0-2.0) Neutrophils # (Auto) 4.1 10 ^3/uL (1.6-8.6) Lymphocytes # (Auto) 1.3 10 ^3/uL (0.4-5.4) Monocytes # (Auto) 0.7 10 ^3/uL (0-1.3) Eosinophils # (Auto) 0.1 10 ^3/uL (0-0.8) Basophils # (Auto) 0 10 ^3/uL (0-0.2) Nucleated Red Blood Cells 0.0 % Sodium Level 140 mmol/L (136-145) Potassium Level 4.0 mmol/L (3.5-5.1) Chloride Level 106 mmol/L (98-107) Carbon Dioxide Level 27 mmol/L (20-31) Anion Gap 7 (5-15) Blood Urea Nitrogen 10 mg/dL (9-23) Creatinine 0.75 mg/dL (0.550-1.02) Glomerular Filtration Rate Calc 85 mL/min (>90) BUN/Creatinine Ratio 13.3 (10.0-20.0) Serum Glucose 99 mg/dL (74-106) Calcium Level 9.4 mg/dL (8.7-10.4) Total Bilirubin 0.7 mg/dL (0.2-1.0) Aspartate Amino Transferase (AST) 32 U/L (13-40) Alanine Aminotransferase (ALT) 17 U/L (7-40) Alkaline Phosphatase 69 U/L (46-116) Total Protein 5.9 g/dL (5.7-8.2) Albumin 3.8 g/dL (3.2-4.8) Prothrombin Time 10.4 sec (9.3-11.8) Prothrombin Time INR 0.98 (0.9-1.15) Activated Partial Thromboplast Time 26.3 SEC (24.5-34.5) Urine Color Yellow (Yellow) Urine Clarity Clear (Clear) Urine pH 7.0 (5.0-9.0) Urine Specific [place] 1.025 (1.001-1.035) Urine Protein Negative (Negative) Urine Ketones Negative (Negative) Urine Blood Negative /uL (Negative) Urine Nitrite Negative (Negative) Urine Bilirubin Negative (Negative) Urine Urobilinogen 4 mg/dL (Negative) Urine Leukocyte Esterase 1+ /uL (Negative) Urine RBC 3 /hpf (0 - 4) Urine Microscopic WBC 17 /HPF (0-5) Urine Squamous Epithelial Cells Few /hpf (<5) Urine Bacteria Few /hpf (None Seen) Urine Glucose Normal mg/dL (Normal) Other Laboratory Tests 12/29/24 06:06 12/28/24 06:24 Brief Hx & Hospital Course: see dictated note Condition at Discharge: Good Final Diagnosis/Problems List left hip surgery Discharge Disposition: Home with Health Services Discharge Instruct/Medications Diet: Cardiac 2g Na,low cholest Activity: No Restrictions, As Tolerated Follow Up/Referral: fu with pcp/ortho Medications: resume home meds monitor bp Discharge Statement: "Patient was advised to return to the ER or call 911 if any headaches, dizziness, shortness of breath, chest pain, abdominal pain, bleeding, fevers, or worsening of medical condition. Patient was counseled about treatment plan, medications, possible side effects, patientverbalized understanding. All questions were answered to the best of my ability. This discharge took greater then 30 minutes in planning, reviewing documentation, counseling the patient, and discussing with other team members." DME: Diagnosis: post-op ASSESSMENT ASSESSMENT Assessment left hip surgery Date of Service: Dec 29, 2024 Billing Provider: ADAM EISENBERG MD Common Visit Codes: 50608-MDN/OBS DISCH DAY >30min ADAM EISENBERG MD Dec 29, 2024 11:52
--- NOTE | 2024-12-29 12:06 | DVHDS ---
DATE OF DISCHARGE: 12/29/2024 HISTORY OF PRESENT ILLNESS: The patient is a 69-year-old lady who was admitted after she underwent surgery on the left hip for DJD of the hip. The patient has a history of hypertension and hyperlipidemia. HOSPITAL COURSE: The patient's hemoglobin at the time of discharge is 9.7. She has been ambulating with physical therapy. The patient was bradycardic and that has since improved. The patient will be discharged home to be on medications as per Orthopedic as well as to monitor heart rate and blood pressure at home. She will follow up with her primary care doctor. FINAL DIAGNOSES: Therefore, * Bradycardia, that is improved. * Hypertension. * Hyperlipidemia. * Obesity. * Status post left hip surgery for degenerative joint disease of the hip. Time spent in discharge planning and review of plan with the patient and nursing was 38 minutes. MD GENEVA Cunningham/JIN TID: [id number] RECEIPT: [id number]
[2024-12-29 13:00] VITALS: BP 130/71; PULSE 87; RESP 18; TEMP 98.1; O2SAT 98
[2024-12-29 16:59] VITALS: BP 123/47; PULSE 72; RESP 18; TEMP 99; O2SAT 96
== END 2024-12-29 19:00 | disposition home health service (06) | DRG 470 ==
LOC: SUR 06:00 → UNDOADMIN 07:09 → OVERFLOW 07:09 → TELE-WESTW 13:56
PROVIDERS: ADMIT Internal Medicine; ATTEND Internal Medicine
PROC: 8E0YXBZ Computer Assisted Procedure of Lower Extremity (ICD-10-PCS; 2024-12-27)
PROC: 0SRB0JZ Replacement of Left Hip Joint with Synthetic Substitute, Open Approach (ICD-10-PCS; principal; 2024-12-27 07:21)
DX: M16.12 Unilateral primary osteoarthritis, left hip (principal); I10 Essential (primary) hypertension; R00.1 Bradycardia, unspecified; E66.9 Obesity, unspecified; E78.5 Hyperlipidemia, unspecified; Z88.8 Allergy status to other drugs, medicaments and biological substances; Z79.899 Other long term (current) drug therapy; Z79.891 Long term (current) use of opiate analgesic; Z79.1 Long term (current) use of non-steroidal anti-inflammatories (NSAID); Z68.32 Body mass index [BMI] 32.0-32.9, adult
CPT/HCPCS: 36415; 72170; 80053; 81001; 85014; 85018; 85025; 85610; 85730; 86850; 86900; 86901; 97110; 97163; G0378; J0131; J0330; J0690; J1885; J2250; J2405; J2704; J3490

== ENCOUNTER → 2025-04-20 | Outpatient (CLI) | payer OTHER, MEDICARE ==
[~2025-04-20] MED LIST changes: -ATOR10TA52 PO; +ATOR40TA52 PO; +METO-289 PO; -METO25TA93 PO
[2025-04-20 15:49] LABS: Basophils # (auto) 0.1 10 ^3/uL (0-0.2); Basophils % (auto) 0.9 % (0.0-2.0); Eosinophils # (auto) 0.1 10 ^3/uL (0-0.8); Eosinophils % (auto) 1.6 % (0.0-7.0); Hematocrit 41.7 % (36.0-46.0); Hemoglobin 14.3 g/dL (12.2-16.2); Lymphocytes # (auto) 2.8 10 ^3/uL (0.4-5.4); Lymphocytes % (auto) 36.8 % (10.0-50.0); Mean Corpuscular Hgb Conc. 34.4 g/dL (32.0-36.0); Mean Corpuscular Volume 81.6 fL (80.0-100.0); Monocytes # (auto) 0.6 10 ^3/uL (0-1.3); Monocytes % (auto) 8.2 % (0.0-12.0); Neutrophils # (auto) 3.9 10 ^3/uL (1.6-8.6); Neutrophils % (auto) 52.5 % (37.0-80.0); Nucleated Red Blood Cells % 0.1 %; Platelet Count (auto) 237 10^3/uL (140-450); Red Blood Cells 5.12 10^6/uL (4.0-5.20); White Blood Cell 7.5 10^3/uL (4.4-10.8)
[2025-04-20 16:24] LABS: Alanine Aminotransferase 21 U/L (7-40); Alkaline Phosphatase 110 U/L (46-116); Anion Gap 11 (5-15); Aspartate Aminotransferase 28 U/L (<34); BUN/Creatinine Ratio 9.8 (10.0-20.0); Blood Urea Nitrogen 9 mg/dL (9-23); Carbon Dioxide 27 mmol/L (20-31); Chloride 105 mmol/L (98-107); Glucose 93 mg/dL (74-106); LDL Cholesterol 80 mg/dL (< 100); Potassium 3.9 mmol/L (3.5-5.1); Sodium 143 mmol/L (136-145); Total Protein 7.9 g/dL (5.7-8.2)
[2025-04-20 16:25] LABS: Bilirubin, Total 0.9 mg/dL (0.2-1.0); Cholesterol 142 mg/dL (< 200)
[2025-04-20 16:30] LABS: Albumin 4.9 g/dL (3.2-4.8); Calcium 10.8 mg/dL (8.7-10.4); HDL Cholesterol 34 mg/dL (40-59); Triglycerides 239 mg/dL (< 150)
== END | disposition home or self-care (01) ==
LOC: LAB 15:29
PROVIDERS: ATTEND Specialist
DX: I12.9 Hypertensive chronic kidney disease with stage 1 through stage 4 chronic kidney disease, or unspecified chronic kidney disease (principal); N18.31 Chronic kidney disease, stage 3a; E78.5 Hyperlipidemia, unspecified; I10 Essential (primary) hypertension; M16.4 Bilateral post-traumatic osteoarthritis of hip
CPT/HCPCS: 36415; 80053; 80061; 85025